=== PATIENT | male | born 1985 | race Caucasian/White ===

== ENCOUNTER 2018-09-12 15:39 | Inpatient (IN) | payer OTHER ==
[2018-09-12 16:35] VITALS: BMI 28.1
--- NOTE | 2018-09-12 17:48 | HP ---
COWS - Scale Resting Pulse: 2= [place] 101-120 Sweatin=Flushed/Facial Moisture Restless Observation: 1= Difficult to Sit Still Pupil Size: 1= Pupils >than Normal (Pupils = 4 mm) Bone or Joint Aches: 1= Mild Discomfort Runny Nose/ Eye Tearin= Nasal Congestion GI Upset > 30mins: 2= Nausea/Diarrhea (No diarrhea) Tremor Observation: 2= Slight Tremor Visible Yawning Observation: 0= None Anxiety or Irritability: 1=Feels Anxious/Irritable Goose Flesh Skin: 0=Smooth Skin COWS Score: 13 CIWA Score - Admission Criteria OASAS Guidelines: Admission for Medically Managed Detox: Requires at least one of the followin. CIWA greater than 12 2. Seizures within the past 24 hours 3. Delirium tremens within the past 24 hours 4. Hallucinations within the past 24 hours 5. Acute intervention needed for co occurring medical disorder 6. Acute intervention needed for co occurring psychiatric disorder 7. Severe withdrawal that cannot be handled at a lower level of care (continued vomiting, continued diarrhea, abnormal vital signs) requiring intravenous medication and/or fluids 8. Admission ROS [facility] Chief Complaint: Heroin withdrawal. Allergies/Adverse Reactions: Allergies Allergy/AdvReac Type Severity Reaction Status Date / Time Penicillins Allergy Verified 09/12/18 16:27 History of Present Illness: First admission at [facility] for heroin detox. Opioid use began at age 24 w/ non-prescribed Percocets. Started Heroin use at age 27. Nasal. Hx overdoses - last 2016. States has a Narcan Kit at home. Nicotine use began at age 24. Denies alcohol or other illicit substances. Longest length of sobriety 9 months - "working the program" PMHx: Cardiac issues - on meds. Denies CP. Psoriasis MHHx: Depression. Denies thoughts of harming self or others. On medications. Last saw own Provider approx 1.5 months ago Requesting a Suboxone taper. Patient informed that will need to have more objective withdrawal symptoms before initial dose of Suboxone can begin. Patient verbalizes an understanding. Patient Name: Parish Padilla Date: 1985 Address: [address] [place] [address] Sex: Male Rx Written Rx Dispensed Drug Quantity Days Supply Prescriber Name 11/19/2017 11/20/2017 suboxone 8 mg-2 mg sl film 30 30 Shayne Norris C, MD Exam Limitations: No Limitations - Ebola screening Have you traveled outside of the country in the last 21 days: No (N) Have you had contact with anyone from an Ebola affected area: No Have you been sick,other than usual withdrawal symptoms: No (Denies recent exposure to measles) Do you have a fever: No - Review of Systems Constitutional: Chills, Diaphoresis EENT: reports: Nose Congestion Respiratory: reports: No Symptoms reported Cardiac: reports: Irregular Heart Rate (and was started on cardiac meds) GI: reports: Constipated (No BM x 2 days), Nausea, Indigestion (Occ heart burn) : reports: No Symptoms Reported Musculoskeletal: reports: Other (Slightly achy muscles and bones) Integumentary: reports: Rash (Psoriasis) Neuro: reports: Headache (Frontal headache - mild), Tremors Endocrine: reports: Increased Thirst Hematology: reports: No Symptoms Reported Psychiatric: reports: Judgement Intact, Orientated x3, Agitated, Anxious, Depressed (Denies thoughts of harming self or others.) Patient History - PPD History Previous Implant?: No Documented Results: Negative w/proof Implanted On Prior [facility] Admission?: No PPD to be Administered?: Yes - Smoking Cessation Smoking history: Current every day smoker Have you smoked in the past 12 months: Yes Aproximately how many cigarettes per day: 15 Hx Chewing Tobacco Use: Yes Initiated information on smoking cessation: Yes 'Breaking Loose' booklet given: 09/12/18 - Substance & Tx. History Hx Alcohol Use: No Hx Substance Use: Yes Substance Use Type: None, Heroin Hx Substance Use Treatment: Yes (detox, rehab, past Suboxone use) - Substances abused Heroin Other (specify): sniff Frequency: Daily Amount used: 8 bags Age of first use: 27 Date of last use: 09/12/18 Admission Physical Exam BHS - Vital Signs Vital Signs: Vital Signs - 24 hr 09/12/18 16:24 Temperature 98.6 F Pulse Rate 106 H Respiratory 20 Rate Blood Pressure 134/90 - Physical General Appearance: Yes: Nourished, Mild Distress, Tremorous, Sweating ( Increased facial moisture) HEENTM: Yes: EOMI, Hearing grossly Normal, Normocephalic, ROSE[place]N (Pupils = 4 mm), Pharynx Normal, Nasal Congestion, Other (Thickened saliva) Respiratory: Yes: Lungs Clear, Normal Breath Sounds, No Respiratory Distress Neck: Yes: No masses,lesions,Nodules, Supple Breast: Yes: Breast Exam Deferred Cardiology: Yes: Regular Rhythm, S1, S2, Tachycardia Abdominal: Yes: Non Tender, Soft Genitourinary: Yes: Within Normal Limits Back: Yes: Normal Inspection Musculoskeletal: Yes: full range of Motion, Gait Steady Extremities: Yes: Normal Capillary Refill, Normal Range of Motion, Tremors ( Mild tremors) Neurological: Yes: non licensed operator II-XII NML intact, Fully Oriented, Alert, Motor Strength 5/5 Integumentary: Yes: Dry (Dry skin, except for facial area. Decreased skin turgor ), Warm, Moist (Increased facial mositure) Lymphatic: Yes: Within Normal Limits - Diagnostic (1) Opioid dependence with withdrawal Current Visit: Yes Status: Acute (2) Nicotine dependence, uncomplicated Current Visit: Yes Status: Chronic Qualifiers: Nicotine product type: cigarettes Qualified Code(s): F17.210 - Nicotine dependence, cigarettes, uncomplicated (3) Psoriasis Current Visit: Yes Status: Chronic (4) Dehydration Current Visit: Yes Status: Acute (5) Tachycardia Current Visit: Yes Status: Chronic (6) Depression Current Visit: Yes Status: Chronic Qualifiers: Depression Type: unspecified Qualified Code(s): F32.9 - Major depressive disorder, single episode, unspecified Cleared for Admission S - Detox or Rehab [facility] Level of Care: Medically Managed Detox Regimen/Protocol: Suboxone Breathalyzer - Breathalyzer Breathalyzer: 0 Urine Drug Screen - Test Device Lot number: [id number] Expiration date: 04/23/20 - Control Is test valid?: Yes - Results Urine drug screen results: MOP-Opiates Inpatient Rehab Admission - Rehab Decision to Admit Inpatient rehab admission?: No
[2018-09-12] MEDS ORDERED: MAGNESIUM HYDROX 2400MG/30ML ORAL SUSPENSION 30 ML CUP PO PRN (18:25)
[2018-09-12] MEDS ORDERED: METHOCARBAMOL 500 MG TABLET PO PRN (18:25)
[2018-09-12] MEDS ORDERED: NICOTINE POLACRILEX 2 MG GUM BUC PRN (18:25)
[2018-09-12] MEDS ORDERED: ACETAMINOPHEN 325 MG TABLET (FP) PO PRN ×2 (18:25)
[2018-09-12] MEDS ORDERED: MELATONIN 5 MG TABLETS PO PRN (18:25)
[2018-09-12] MEDS ORDERED: guaiFENesin 200 MG/10 ML 10 ML UNIT-DOSE CUPS PO PRN (18:25)
[2018-09-12] MEDS ORDERED: MENTHOL/PHENOL 1 EACH UD MM PRN (18:25)
[2018-09-12] MEDS ORDERED: MAGNESIUM CITRATE 300 ML BOTTLE PO PRN (18:25)
[2018-09-12] MEDS ORDERED: IBUPROFEN 400 MG TABLET (FP) PO PRN (18:25)
[2018-09-12] MEDS ORDERED: MAG HYDROX/AL HYDROX/SIMETH 30 ML UNIT-DOSE CUP PO PRN (18:25)
[2018-09-12] MEDS ORDERED: BISMUTH SUBSALICYLATE 524 MG/30 ML UD PO PRN (18:25)
[2018-09-12] MEDS: cloNIDine HCL 0.1 MG TABLET PO PRN (19:22)
[2018-09-12] MEDS ORDERED: BUPRENORPHINE/NALOXONE 2 MG/0.5 MG FILM PACKET SL SCH (22:00)
[2018-09-12] MEDS: THIAMINE HCL 100 MG TABLET (FP) PO SCH (22:31)
[2018-09-12] MEDS: metoPROLOL SUCCINATE 25 MG TAB.SR.24H (FP) PO SCH (22:31)
[2018-09-12] MEDS: CLOTRIMAZOLE/BETAMET DIPROP TOPICAL CREAM 45 GM TUBE TP SCH (22:31)
[2018-09-12] MEDS: ATORVASTATIN CA 10 MG TABLET (FP) PO SCH (22:59)
[2018-09-12] MEDS ORDERED: traZODone HCL 50 MG TABLET (FP) PO ONE (23:00)
[2018-09-13 09:40] LABS: HEMOGLOBIN 14.4 GM/dL (11.7-16.9); MCH 33.9 pg (25.7-33.7); MCHC 35.1 g/dl (32.0-35.9); MEAN CELL VOLUME 96.3 fl (80-96); MEAN PLT VOLUME 7.9 fl (7.5-11.1); PLATELET COUNT 192 K/MM3 (134-434); RBC 4.26 M/mm3 (4.00-5.60); RDW 12.9 % (11.9-15.9)
[2018-09-13 09:51] LABS: ALBUMIN 3.5 g/dl (3.4-5.0); ALK PHOS 65 U/L (45-117); ANION GAP 7 MMOL/L (8-16); BILIRUBIN,TOTAL 0.6 mg/dL (0.2-1); BLOOD UREA NITROGEN 8 mg/dL (7-18); CALCIUM 8.9 mg/dL (8.5-10.1); CHLORIDE 102 mmol/L (98-107); CO2 31 mmol/L (21-32); CREATININE 0.7 mg/dL (0.55-1.3); GLUCOSE,RANDOM 74 mg/dL (74-106); POTASSIUM 4.1 mmol/L (3.5-5.1); SGOT/AST 34 U/L (15-37); SGPT/ALT 33 U/L (13-61); SODIUM 140 mmol/L (136-145); TOT PROT 6.1 g/dl (6.4-8.2)
[2018-09-13] MEDS ORDERED: BUPRENORPHINE/NALOXONE 2 MG/0.5 MG FILM PACKET SL SCH (10:00)
--- NOTE | 2018-09-13 10:01 | EKG ---
Test Reason : Blood Pressure : / mmHG Vent. Rate : 078 BPM Atrial Rate : 078 BPM P-R Int : 120 ms QRS Dur : 092 ms QT Int : 364 ms P-R-T Axes : 037 044 017 degrees QTc Int : 414 ms NORMAL SINUS RHYTHM NORMAL ECG NO PREVIOUS ECGS AVAILABLE Confirmed by ROBERTA DRISCOLL MD ([id number]) on 09/13/2018 10:00:47 AM Referred By: VY Confirmed By:ROBERTA DRISCOLL MD
[2018-09-13] MEDS: PRENATAL VITAMINS W/ FOLIC ACID TABLET (FP) PO SCH (10:30)
[2018-09-13] MEDS: CLOTRIMAZOLE/BETAMET DIPROP TOPICAL CREAM 45 GM TUBE TP SCH ×2 (10:31→22:22)
[2018-09-13] MEDS: BUPRENORPHINE/NALOXONE 2 MG/0.5 MG FILM PACKET SL SCH ×2 (10:32→22:20)
[2018-09-13] MEDS: NICOTINE 21 MG/24 HOURS TOPICAL PATCH TD SCH (10:32)
--- NOTE | 2018-09-13 13:36 | CONSULT ---
[facility] Psychiatric Consult - Data Date of interview: 09/13/18 Admission source: [facility] Identifying data: First admission to [facility] for this 32 y/o male self-referred for detoxification treatment (heroin). Examined at [address] [place] [address]. Patient is single, no children, homeless, unemployed and deprived of financial support. Substance Abuse History: Confirmed by the patient. Mr Padilla admits to using non -prescribed Percocets (age 24). Escalated into heroin use, via inhalation, at age 27. History of two incidents of overdoses (as recently as three months ago) . Details in current [facility] report : Smoking history: Current every day smoker. Have you smoked in the past 12 months: Yes. Aproximately how many cigarettes per day: 15. Hx Chewing Tobacco Use: Yes. Initiated information on smoking cessation: Yes. 'Breaking Loose' booklet given: 09/12/18. Substance & Tx. History. Hx Alcohol Use: No. Hx Substance Use: Yes. Substance Use Type: None , Heroin. Hx Substance Use Treatment: Yes (detox, rehab, past Suboxone use). - Substances abused. Heroin. Other (specify): sniff. Frequency: Daily. Amount used: 8 bags. Age of first use: 27. Date of last use: 09/12/18 Medical History: Psoriasis. Psychiatric History: No reported history of psychiatric hospitalizations. Patient reports that he has been diagnosed with MDD, TIEN and PTSD. Has been seeing the [facility] psychiatrist at a 3/ housing setting (until his administrative discharge, days ago, for violation of house rules/regulations). Medicated with a combination of sertraline 200 mg/day (confirmed by pharmacy claims of 09/06/18 at [facility]) + wellbutrin XL 150 mg/day + trazodone 100 mg/hs. Reportedly took these medications two days prior to this [facility] visit. Mr Padilla denies history of suicide attempts. Physical/Sexual Abuse/Trauma History: Severe stressors : of biological father, in December 2017, from heroin overdose, estrangement from relatives, financial difficulties, lack of vocational skills, unemployment, homelessness and addiction to opiates. Additional Comment: Urine drug screen results: MOP-Opiates. Noted. Mental Status Exam - Mental Status Exam Alert and Oriented to: Time, Place, Person Cognitive Function: Good Patient Appearance: Well Groomed (short stature) Mood: Nervous, Withdrawn, Anxious Affect: Appropriate, Mood Congruent, Normal Range Patient Behavior: Fatigued, Cooperative Speech Pattern: Clear, Appropriate Voice Loudness: Normal Thought Process: Goal Oriented Thought Disorder: Not Present Hallucinations: Denies Suicidal Ideation: Denies Homicidal Ideation: Denies Insight/Judgement: Poor Sleep: Poorly, Difficulty falling asleep Appetite: Good Muscle strength/Tone: Normal Gait/Station: Normal Psychiatric Findings - Problem List ([place] 1, 2,3) (1) Opioid dependence with withdrawal Current Visit: Yes Status: Acute (2) Nicotine dependence, uncomplicated Current Visit: Yes Status: Chronic Qualifiers: Nicotine product type: cigarettes Qualified Code(s): F17.210 - Nicotine dependence, cigarettes, uncomplicated (3) Substance induced mood disorder Current Visit: Yes Status: Chronic (4) Depressive disorder Current Visit: Yes Status: Chronic (5) Insomnia Current Visit: Yes Status: Chronic - Initial Treatment Plan Initial Treatment Plan: Patient is interviewed with medical students in attendance (Mr Padilla granted verbal permission). Psychoeducation. Support. OLENA rodarte. Groups. Relapse prevention (MAT) is discussed in this session. Medications reviewed. Pharmacy utilization : revisited. Ordered : zoloft 200 mg po daily + trazodone 100 mg po hs + wellbutrin XL 150 mg po daily (combination of 3 antidepressant formulations is noted + brought to patient's attention ; he insists on staying on this regimen ). Side effects/benefits of each drug are discussed with the patient. Mr Padilla is made aware of potential for suicidal ideation, sexual dysfunction, priapism and seizures.
--- NOTE | 2018-09-13 16:11 | PN ---
BHS COWS - Scale Resting Pulse: 0= [place] 80 or Below Sweatin= Chills/Flushing Restless Observation: 1= Difficult to Sit Still Pupil Size: 0= Normal to Room Light Bone or Joint Aches: 1= Mild Discomfort Runny Nose/ Eye Tearin= Nasal Congestion GI Upset > 30mins: 1= Stomach Cramp Tremor Observation of Outstretched Hands: 0= None Yawning Observation: 1= 1-2x During Session Anxiety or Irritability: 2=Irritable/Anxious Goose Flesh Skin: 3=[place] COWS Score: 11 BHS Progress Note (SOAP) Subjective: Body Aches, Anxious, Interrupted Sleep. Objective: PATIENT A & O X 3, OBSERVED AMBULATING ON UNIT UNASSISTED. IN NO ACUTE DISTRESS. 09/13/18 16:12 Vital Signs Temperature 97.9 F 09/13/18 13:18 Pulse Rate 68 09/13/18 13:18 Respiratory Rate 18 09/13/18 13:18 Blood Pressure 93/62 09/13/18 13:18 O2 Sat by Pulse Oximetry (%) Laboratory Tests 09/13/18 09/13/18 09/13/18 07:45 07:45 07:45 WBC 7.0 RBC 4.26 Hgb 14.4 Hct 41.0 MCV 96.3 H MCH 33.9 H MCHC 35.1 RDW 12.9 Plt Count 192 MPV 7.9 Sodium 140 Potassium 4.1 Chloride 102 Carbon Dioxide 31 Anion Gap 7 L BUN 8 Creatinine 0.7 Creat Clearance w eGFR 132.41 Random Glucose 74 Calcium 8.9 Total Bilirubin 0.6 AST 34 ALT 33 Alkaline Phosphatase 65 Total Protein 6.1 L Albumin 3.5 RPR Titer Nonreactive LABS NOTED. ADMISSION US RESULTS PENDING. 09/13/18 16:15 Assessment: WITHDRAWAL SYMPTOMS. Plan: CONTINUE DETOX. INCREASE DAILY PO FLUID / WATER INTAKE.
[2018-09-13 18:29] LABS: URINE APPEARANCE CLEAR; URINE BILIRUBIN NEGATIVE (NEGATIVE); URINE COLOR YELLOW; URINE GLUCOSE (UA) NEGATIVE (NEGATIVE); URINE KETONE NEGATIVE (NEGATIVE); URINE LEUK ESTERASE NEGATIVE (NEGATIVE); URINE NITRITE NEGATIVE (NEGATIVE); URINE PROTEIN NEGATIVE (NEGATIVE); URINE UROBILINOGEN 0.2 mg/dL (0.2-1.0)
[2018-09-13] MEDS: metoPROLOL SUCCINATE 25 MG TAB.SR.24H (FP) PO SCH (22:22)
[2018-09-13] MEDS: ATORVASTATIN CA 10 MG TABLET (FP) PO SCH (22:22)
[2018-09-13] MEDS: THIAMINE HCL 100 MG TABLET (FP) PO SCH (22:22)
[2018-09-13] MEDS: traZODone HCL 100 MG TABLET (FP) PO SCH (22:22)
[2018-09-14] MEDS: PRENATAL VITAMINS W/ FOLIC ACID TABLET (FP) PO SCH (10:24)
[2018-09-14] MEDS: SERTRALINE HCL 50 MG TABLET (FP) PO SCH (10:24)
[2018-09-14] MEDS: cloNIDine HCL 0.1 MG TABLET PO PRN ×2 (10:25→22:25)
[2018-09-14] MEDS: BUPRENORPHINE/NALOXONE 2 MG/0.5 MG FILM PACKET SL SCH ×2 (10:26→22:20)
[2018-09-14] MEDS: NICOTINE 21 MG/24 HOURS TOPICAL PATCH TD SCH (10:26)
[2018-09-14] MEDS: CLOTRIMAZOLE/BETAMET DIPROP TOPICAL CREAM 45 GM TUBE TP SCH ×2 (10:39→22:29)
--- NOTE | 2018-09-14 15:04 | PN ---
BHS COWS - Scale Resting Pulse: 0= [place] 80 or Below Sweatin= No chills or Flushing Restless Observation: 1= Difficult to Sit Still Pupil Size: 0= Normal to Room Light Bone or Joint Aches: 2= Severe Diffuse Aches Runny Nose/ Eye Tearin= Nasal Congestion GI Upset > 30mins: 0= None Tremor Observation of Outstretched Hands: 0= None Yawning Observation: 1= 1-2x During Session Anxiety or Irritability: 4=Extreme Anxiety Goose Flesh Skin: 0=Smooth Skin COWS Score: 9 BHS Progress Note (SOAP) Subjective: Body Aches, Anxious, Interrupted Sleep, Constipation. Objective: PATIENT A & O X 3, OBSERVED AMBULATING ON UNIT UNASSISTED. IN NO ACUTE DISTRESS. 09/14/18 15:03 Vital Signs Temperature 97.2 F L 09/14/18 13:05 Pulse Rate 63 09/14/18 13:05 Respiratory Rate 18 09/14/18 13:05 Blood Pressure 102/60 09/14/18 13:05 O2 Sat by Pulse Oximetry (%) Laboratory Tests 09/13/18 09/13/18 09/13/18 07:45 07:45 07:45 WBC 7.0 RBC 4.26 Hgb 14.4 Hct 41.0 MCV 96.3 H MCH 33.9 H MCHC 35.1 RDW 12.9 Plt Count 192 MPV 7.9 Sodium 140 Potassium 4.1 Chloride 102 Carbon Dioxide 31 Anion Gap 7 L BUN 8 Creatinine 0.7 Creat Clearance w eGFR 132.41 Random Glucose 74 Calcium 8.9 Total Bilirubin 0.6 AST 34 ALT 33 Alkaline Phosphatase 65 Total Protein 6.1 L Albumin 3.5 Urine Color Urine Appearance Urine pH Ur Specific [place] Urine Protein Urine Glucose (UA) Urine Ketones Urine Blood Urine Nitrite Urine Bilirubin Urine Urobilinogen Ur Leukocyte Esterase RPR Titer Nonreactive 09/13/18 14:00 WBC RBC Hgb Hct MCV MCH MCHC RDW Plt Count MPV Sodium Potassium Chloride Carbon Dioxide Anion Gap BUN Creatinine Creat Clearance w eGFR Random Glucose Calcium Total Bilirubin AST ALT Alkaline Phosphatase Total Protein Albumin Urine Color Yellow Urine Appearance Clear Urine pH 8.0 Ur Specific [place] 1.010 Urine Protein Negative Urine Glucose (UA) Negative Urine Ketones Negative Urine Blood Negative Urine Nitrite Negative Urine Bilirubin Negative Urine Urobilinogen 0.2 Ur Leukocyte Esterase Negative RPR Titer LABS NOTED. Assessment: 09/14/18 15:03 WITHDRAWAL SYMPTOMS. Plan: CONTINUE DETOX. INCREASE DAILY PO FLUID / WATER INTAKE. PRN CLONIDINE PO FOR WITHDRAWAL SYMPTOMS. PRN ROBAXIN PO FOR BODY ACHES / MUSCLE SPASMS. PRN MOM FOR CONSTIPATION.
[2018-09-14] MEDS: metoPROLOL SUCCINATE 25 MG TAB.SR.24H (FP) PO SCH (22:20)
[2018-09-14] MEDS: traZODone HCL 100 MG TABLET (FP) PO SCH (22:20)
[2018-09-14] MEDS: THIAMINE HCL 100 MG TABLET (FP) PO SCH (22:20)
[2018-09-14] MEDS: ATORVASTATIN CA 10 MG TABLET (FP) PO SCH (22:20)
--- NOTE | 2018-09-15 10:15 | PN ---
BHS COWS - Scale Resting Pulse: 0= [place] 80 or Below Sweatin= Chills/Flushing Restless Observation: 0= Sits Still Pupil Size: 0= Normal to Room Light Bone or Joint Aches: 1= Mild Discomfort Runny Nose/ Eye Tearin= None GI Upset > 30mins: 1= Stomach Cramp Tremor Observation of Outstretched Hands: 1= Tremor [place], Not Seen Yawning Observation: 1= 1-2x During Session Anxiety or Irritability: 1=Feels Anxious/Irritable Goose Flesh Skin: 0=Smooth Skin COWS Score: 6 S Progress Note (SOAP) Subjective: feeling better today doing well with suboxone discuss suboxone assisted maintenance program for opiate misuse Objective: 09/15/18 10:14 Vital Signs Temperature 98.7 F 09/15/18 09:28 Pulse Rate 59 L 09/15/18 09:28 Respiratory Rate 18 09/15/18 09:28 Blood Pressure 98/64 09/15/18 09:28 O2 Sat by Pulse Oximetry (%) Laboratory Last Values WBC 7.0 K/mm3 (4.0-10.0) 09/13/18 07:45 RBC 4.26 M/mm3 (4.00-5.60) 09/13/18 07:45 Hgb 14.4 GM/dL (11.7-16.9) 09/13/18 07:45 Hct 41.0 % (35.4-49) 09/13/18 07:45 MCV 96.3 fl (80-96) H 09/13/18 07:45 MCH 33.9 pg (25.7-33.7) H 09/13/18 07:45 MCHC 35.1 g/dl (32.0-35.9) 09/13/18 07:45 RDW 12.9 % (11.9-15.9) 09/13/18 07:45 Plt Count 192 K/MM3 (134-434) 09/13/18 07:45 MPV 7.9 fl (7.5-11.1) 09/13/18 07:45 Sodium 140 mmol/L (136-145) 09/13/18 07:45 Potassium 4.1 mmol/L (3.5-5.1) 09/13/18 07:45 Chloride 102 mmol/L (98-107) 09/13/18 07:45 Carbon Dioxide 31 mmol/L (21-32) 09/13/18 07:45 Anion Gap 7 MMOL/L (8-16) L 09/13/18 07:45 BUN 8 mg/dL (7-18) 09/13/18 07:45 Creatinine 0.7 mg/dL (0.55-1.3) 09/13/18 07:45 Creat Clearance w eGFR 132.41 (>60) 09/13/18 07:45 Random Glucose 74 mg/dL (74-106) 09/13/18 07:45 Calcium 8.9 mg/dL (8.5-10.1) 09/13/18 07:45 Total Bilirubin 0.6 mg/dL (0.2-1) 09/13/18 07:45 AST 34 U/L (15-37) 09/13/18 07:45 ALT 33 U/L (13-61) 09/13/18 07:45 Alkaline Phosphatase 65 U/L (45-117) 09/13/18 07:45 Total Protein 6.1 g/dl (6.4-8.2) L 09/13/18 07:45 Albumin 3.5 g/dl (3.4-5.0) 09/13/18 07:45 Urine Color Yellow 09/13/18 14:00 Urine Appearance Clear 09/13/18 14:00 Urine pH 8.0 (5.0-8.0) 09/13/18 14:00 Ur Specific [place] 1.010 (1.010-1.035) 09/13/18 14:00 Urine Protein Negative (NEGATIVE) 09/13/18 14:00 Urine Glucose (UA) Negative (NEGATIVE) 09/13/18 14:00 Urine Ketones Negative (NEGATIVE) 09/13/18 14:00 Urine Blood Negative (NEGATIVE) 09/13/18 14:00 Urine Nitrite Negative (NEGATIVE) 09/13/18 14:00 Urine Bilirubin Negative (NEGATIVE) 09/13/18 14:00 Urine Urobilinogen 0.2 mg/dL (0.2-1.0) 09/13/18 14:00 Ur Leukocyte Esterase Negative (NEGATIVE) 09/13/18 14:00 RPR Titer Nonreactive (NONREACTIVE) 09/13/18 07:45 lab noted Assessment: 09/15/18 10:14 mild opiate withdrawal sx 09/15/18 10:15 Plan: continue detox
[2018-09-15] MEDS: SERTRALINE HCL 50 MG TABLET (FP) PO SCH (10:32)
[2018-09-15] MEDS: PRENATAL VITAMINS W/ FOLIC ACID TABLET (FP) PO SCH (10:32)
[2018-09-15] MEDS: BUPRENORPHINE/NALOXONE 2 MG/0.5 MG FILM PACKET SL SCH ×2 (10:32→22:26)
[2018-09-15] MEDS: CLOTRIMAZOLE/BETAMET DIPROP TOPICAL CREAM 45 GM TUBE TP SCH ×2 (10:32→22:25)
[2018-09-15] MEDS: NICOTINE 21 MG/24 HOURS TOPICAL PATCH TD SCH (10:34)
[2018-09-15] MEDS: traZODone HCL 100 MG TABLET (FP) PO SCH (22:26)
[2018-09-15] MEDS: ATORVASTATIN CA 10 MG TABLET (FP) PO SCH (22:26)
[2018-09-15] MEDS: THIAMINE HCL 100 MG TABLET (FP) PO SCH (22:26)
[2018-09-15] MEDS: metoPROLOL SUCCINATE 25 MG TAB.SR.24H (FP) PO SCH (22:29)
[2018-09-16 10:08] VITALS: BP 119/62; PULSE 73; TEMP 98.4
[2018-09-16] MEDS: PRENATAL VITAMINS W/ FOLIC ACID TABLET (FP) PO SCH (10:14)
[2018-09-16] MEDS: BUPRENORPHINE/NALOXONE 2 MG/0.5 MG FILM PACKET SL SCH (10:14)
[2018-09-16] MEDS: CLOTRIMAZOLE/BETAMET DIPROP TOPICAL CREAM 45 GM TUBE TP SCH (10:14)
[2018-09-16] MEDS: NICOTINE 21 MG/24 HOURS TOPICAL PATCH TD SCH (10:14)
[2018-09-16] MEDS: SERTRALINE HCL 50 MG TABLET (FP) PO SCH (10:14)
[2018-09-16] MEDS: cloNIDine HCL 0.1 MG TABLET PO PRN (10:15)
--- NOTE | 2018-09-16 15:52 | DS ---
[facility] Detox Discharge Summary Admission Date: 09/12/18 Discharge Date: 09/16/18 - History Present History: Opioid Dependence Additional Comments: 32 years old male admitted on 09/12/18 for opiate withdrawal stabilization completed detox regimen alert no acute distress aftercare [facility] Pertinent Past History: bring medication list and lab report to aftercare appointment - Physical Exam Results Vital Signs: Vital Signs Temperature 98.4 F 09/16/18 10:07 Pulse Rate 73 09/16/18 10:07 Respiratory Rate 20 09/16/18 10:07 Blood Pressure 119/62 09/16/18 10:07 O2 Sat by Pulse Oximetry (%) Pertinent Admission Physical Exam Findings: opiate withdrawal sx Laboratory Last Values WBC 7.0 K/mm3 (4.0-10.0) 09/13/18 07:45 RBC 4.26 M/mm3 (4.00-5.60) 09/13/18 07:45 Hgb 14.4 GM/dL (11.7-16.9) 09/13/18 07:45 Hct 41.0 % (35.4-49) 09/13/18 07:45 MCV 96.3 fl (80-96) H 09/13/18 07:45 MCH 33.9 pg (25.7-33.7) H 09/13/18 07:45 MCHC 35.1 g/dl (32.0-35.9) 09/13/18 07:45 RDW 12.9 % (11.9-15.9) 09/13/18 07:45 Plt Count 192 K/MM3 (134-434) 09/13/18 07:45 MPV 7.9 fl (7.5-11.1) 09/13/18 07:45 Sodium 140 mmol/L (136-145) 09/13/18 07:45 Potassium 4.1 mmol/L (3.5-5.1) 09/13/18 07:45 Chloride 102 mmol/L (98-107) 09/13/18 07:45 Carbon Dioxide 31 mmol/L (21-32) 09/13/18 07:45 Anion Gap 7 MMOL/L (8-16) L 09/13/18 07:45 BUN 8 mg/dL (7-18) 09/13/18 07:45 Creatinine 0.7 mg/dL (0.55-1.3) 09/13/18 07:45 Creat Clearance w eGFR 132.41 (>60) 09/13/18 07:45 Random Glucose 74 mg/dL (74-106) 09/13/18 07:45 Calcium 8.9 mg/dL (8.5-10.1) 09/13/18 07:45 Total Bilirubin 0.6 mg/dL (0.2-1) 09/13/18 07:45 AST 34 U/L (15-37) 09/13/18 07:45 ALT 33 U/L (13-61) 09/13/18 07:45 Alkaline Phosphatase 65 U/L (45-117) 09/13/18 07:45 Total Protein 6.1 g/dl (6.4-8.2) L 09/13/18 07:45 Albumin 3.5 g/dl (3.4-5.0) 09/13/18 07:45 Urine Color Yellow 09/13/18 14:00 Urine Appearance Clear 09/13/18 14:00 Urine pH 8.0 (5.0-8.0) 09/13/18 14:00 Ur Specific [place] 1.010 (1.010-1.035) 09/13/18 14:00 Urine Protein Negative (NEGATIVE) 09/13/18 14:00 Urine Glucose (UA) Negative (NEGATIVE) 09/13/18 14:00 Urine Ketones Negative (NEGATIVE) 09/13/18 14:00 Urine Blood Negative (NEGATIVE) 09/13/18 14:00 Urine Nitrite Negative (NEGATIVE) 09/13/18 14:00 Urine Bilirubin Negative (NEGATIVE) 09/13/18 14:00 Urine Urobilinogen 0.2 mg/dL (0.2-1.0) 09/13/18 14:00 Ur Leukocyte Esterase Negative (NEGATIVE) 09/13/18 14:00 RPR Titer Nonreactive (NONREACTIVE) 09/13/18 07:45 lab noted - Treatment Hospital Course: Detox Protocol Followed, Detoxed Safely, Responded well, Discharged Condition Good, Rehab Referral Accepted Patient has Accepted a Rehab Referral to: [facility] - Medication Discharge Medications: Ambulatory Orders Atorvastatin Calcium [Lipitor] 10 mg PO HS 09/12/18 Bupropion HCl [Wellbutrin Sr] 150 mg PO DAILY 09/12/18 Metoprolol Succinate [Toprol Xl] 25 mg PO HS 09/12/18 Sertraline HCl [Zoloft] 100 mg PO DAILY 09/12/18 traZODone HCL [Trazodone HCl] 100 mg PO HS 09/12/18 Metoprolol Succinate [Toprol XL -] 25 mg PO HS #14 tab.sr.24h 09/15/18 - Diagnosis (1) Opioid dependence with withdrawal Status: Acute (2) Nicotine dependence, uncomplicated Status: Acute Qualifiers: Nicotine product type: cigarettes Qualified Code(s): F17.210 - Nicotine dependence, cigarettes, uncomplicated (3) Substance induced mood disorder Status: Suspected - AMA Did Patient Leave Against Medical Advice: No
== END 2018-09-16 10:52 | disposition home or self-care (01) | DRG 773 ==
LOC: YASAS 15:39 → Y3N 18:47
PROVIDERS: ADMIT Surgery; ATTEND Surgery
PROC: HZ2ZZZZ Detoxification Services for Substance Abuse Treatment (ICD-10-PCS; principal; 2018-09-12)
DX: F11.23 Opioid dependence with withdrawal (principal); F17.210 Nicotine dependence, cigarettes, uncomplicated; F19.24 Other psychoactive substance dependence with psychoactive substance-induced mood disorder; F32.9 Major depressive disorder, single episode, unspecified; G47.00 Insomnia, unspecified; L40.9 Psoriasis, unspecified; K59.00 Constipation, unspecified; M62.838 Other muscle spasm; R00.0 Tachycardia, unspecified; E86.0 Dehydration
CPT/HCPCS: 36415; 80053; 81003; 85027; 86593; 93005; 93010; J0735